=== PATIENT | male | born 1955 | race Asian ===

== ENCOUNTER 2016-12-28 19:44 | Emergency (ER) | payer OTHER ==
[~2016-12-28] VITALS: Ht 190.5 cm; Wt 83.9 kg
[2016-12-28 20:27] VITALS: BP 160/90; TEMP 98.2
== END 2016-12-28 20:27 | disposition home or self-care (01) ==
LOC: ED 19:44
DX: K08.89 Other specified disorders of teeth and supporting structures (principal)
CPT/HCPCS: 99281